=== PATIENT | male | born 1960 | race Two or more races ===

== ENCOUNTER 2016-12-10 19:35 | Emergency (ER) | payer OTHER ==
[~2016-12-10] VITALS: Ht 180.3 cm; Wt 95.3 kg
[2016-12-10 19:55] VITALS: BP 147/90
[2016-12-11] MEDS ORDERED: TETANUS-DIPTH-ACEL PERTUSSIS 0.5ML SYRG IM ONE (00:15)
[2016-12-11] MEDS ORDERED: BACITRACIN TOP OINT 1 UD PKG TOP ONE (00:15)
== END 2016-12-11 00:40 | disposition home or self-care (01) ==
LOC: ER 19:45
DX: S62.521A Displaced fracture of distal phalanx of right thumb, initial encounter for closed fracture (principal); L60.8 Other nail disorders; W22.8XXA Striking against or struck by other objects, initial encounter; Y93.89 Activity, other specified; Y99.8 Other external cause status; Y92.89 Other specified places as the place of occurrence of the external cause
CPT/HCPCS: 11740; 29130; 73140; 90471; 90715